=== PATIENT | male | born 1960 ===

== ENCOUNTER 2020-11-23 18:20 | Emergency (ER) | payer OTHER ==
[~2020-11-23] VITALS: Ht 167.6 cm; Wt 68.9 kg
--- NOTE | 2020-11-23 19:05 | NUR ---
Recieved report from DANIELE Wise
[2020-11-23] MEDS ORDERED: ISOS30TA86 PO (19:06)
[2020-11-23] MEDS ORDERED: ASPI81TA31 PO (19:06)
[2020-11-23] MEDS ORDERED: TAMS-3 PO (19:06)
[2020-11-23] MEDS ORDERED: METO25TA6 PO (19:06)
[2020-11-23] MEDS ORDERED: ALLO300T2 PO (19:06)
[2020-11-23] MEDS ORDERED: METF-440 PO (19:06)
[2020-11-23] MEDS ORDERED: ATOR20TA PO (19:06)
--- NOTE | 2020-11-23 19:15 | NUR ---
Pt came from home for non-radiating chest pain described as pressure, pain level 2-3 starting 11am today. Denies sob, no n/v. No signs of distress. Will continue to monitor.
[2020-11-23] MEDS ORDERED: NITROGLYCERIN OINT 1 GM PACKET TP ONE ×2 (19:30→19:53)
[2020-11-23] MEDS ORDERED: METOPROLOL TARTRATE 50 MG TABLET PO ONE (19:30)
[2020-11-23 19:33] LABS: HEMATOCRIT 41.4 % (36.7-47.1); MEAN CORPUSCULAR HEMOGLOBIN 29.7 uug (23.8-33.4); MEAN CORPUSCULAR VOLUME 88.4 fL (73.0-96.2); PLATELET COUNT (AUTO) 133 K/uL (152-348)
[2020-11-23 19:43] LABS: CREATININE 1.1 mg/dL (0.6-1.3); POTASSIUM 3.9 mmol/L (3.5-5.1)
[2020-11-23 19:49] LABS: BILIRUBIN,DIRECT 0.1 mg/dL (0.0-0.2); BILIRUBIN,TOTAL 0.4 mg/dL (0.2-1.0)
[2020-11-23] MEDS ORDERED: METOPROLOL TARTRATE 50 MG TABLET ONE (19:53)
[2020-11-23] MEDS ORDERED: IV NS 1000 ML 1,000 ML IV ONE ×2 (20:00→21:30)
--- NOTE | 2020-11-23 20:56 | NUR ---
Pt denies cp at this time.
--- NOTE | 2020-11-24 00:12 | NUR ---
Patient discharged to home in stable condition. Written and verbal after care instructions given. Patient verbalizes understanding of instructions. Stressed follow up or return to ER for worsening s/s. Pt denies cp, sob. Vss. No signs of distress. Walks with steady gait. IV removed. All belongings taken.
[2020-11-24 01:27] VITALS: BP 139/79
== END 2020-11-24 00:12 | disposition home or self-care (01) ==
LOC: ER 18:24
DX: E86.0 Dehydration (principal); R94.31 Abnormal electrocardiogram [ECG] [EKG]; E11.9 Type 2 diabetes mellitus without complications; Z79.84 Long term (current) use of oral hypoglycemic drugs; Z79.899 Other long term (current) drug therapy; Z79.82 Long term (current) use of aspirin; Z95.820 Peripheral vascular angioplasty status with implants and grafts
CPT/HCPCS: 36415; 70030-TC; 71045; 83605; 83735; 85025; 85730; 93005; A4663; J7030